=== PATIENT | female | born 2000 | race Caucasian/White ===

== ENCOUNTER 2021-06-13 10:21 | Inpatient (IN) | payer OTHER ==
[~2021-06-13 10:21] MED LIST: Bupivacaine 0.25% HCL 30 ML VIAL ONE; Oxytocin 10 UNITS/ML VIAL ONE; PROPOFOL 200 MG/20 ML VIAL ONE; Succinylcholine 200 MG/10 ml SYRINGE FS ONE; ePHEDrine Sulfate 50 MG/10 ML VIAL ONE
[2021-06-13 10:53] VITALS: BMI 30.9
[2021-06-13] MEDS: Lactated Ringer's 1,000 ML IV SCH ×3 (11:10→16:54)
[2021-06-13] MEDS ORDERED: hydrALAZINE 20 MG/ML VIAL SLOW IVP PRN ×2 (11:33→23:01)
[2021-06-13] MEDS ORDERED: Betamet Acet/Betamet Na Ph 30 MG/5 ML VIAL ONE (11:34)
[2021-06-13] MEDS ORDERED: Penicillin G Potassium 5 MILL.UNITS VIAL ONE (11:35)
[2021-06-13] MEDS ORDERED: NIFEdipine 10 MG CAP PO SCH ×2 (11:50→18:00)
[2021-06-13] MEDS: NIFEdipine 10 MG CAP ONE ×2 (11:53→12:29)
[2021-06-13] MEDS ORDERED: Promethazine HCl 25 MG/ML VIAL IM PRN ×6 (11:57→23:01)
[2021-06-13] MEDS ORDERED: Penicillin G Potassium 5 MILL.UNITS in Sodium Chloride 0.9% 100 ML IVPB SCH (12:00)
[2021-06-13] MEDS ORDERED: Betamet Acet/Betamet Na Ph 30 MG/5 ML VIAL IM SCH (12:00)
[2021-06-13] MEDS ORDERED: Morphine 10 MG/ML VIAL ONE (12:01)
[2021-06-13] MEDS ORDERED: Morphine 4 MG/ML VIAL SLOW IVP SCH (12:15)
[2021-06-13] MEDS ORDERED: Ibuprofen 800 MG TAB PO PRN (15:47)
[2021-06-13] MEDS ORDERED: Carboprost 250 MCG/ML AMP IM PRN (15:47)
[2021-06-13] MEDS ORDERED: Misoprostol 200 MCG TAB PR PRN ×2 (15:47→23:01)
[2021-06-13] MEDS ORDERED: Methylergonovine 0.2 MG/ML VIAL IM PRN (15:47)
[2021-06-13] MEDS ORDERED: Acetaminophen 500 MG TAB PO PRN (15:47)
[2021-06-13] MEDS ORDERED: Lidocaine 1% (PF) 30 ML VIAL SC PRN (15:47)
[2021-06-13] MEDS: Penicillin G 2.5 MILL.units 2.5 MILL.UNITS in Premix Bag 1 BAG IVPB SCH (15:56)
[2021-06-13] MEDS ORDERED: NS w/ Oxytocin 30 units 500 ML IV SCH ×2 (16:00→23:01)
[2021-06-13] MEDS ORDERED: Lactated Ringer's 1,000 ML IV SCH (16:00)
[2021-06-13] MEDS ORDERED: Fentanyl 2 mcg/Bup 0.1% Cadd 100 ML ONE (16:30)
[2021-06-13 16:31] LABS: SARS-CoV-2 NAA Rapid Test Not Detected (NotDetected)
[2021-06-13 16:32] LABS: Hemoglobin 10.1 g/dL (12.0-15.5); Mean Corpuscular HGB CONC 31.9 g/dL (32.0-36.0); Mean Corpuscular Hemoglobin 24.9 pg (27.0-33.0); Mean Corpuscular Volume 78.3 fl (81.6-98.3); Platelet Count 274 10x3/uL (150-450); RBC Distribution Width 12.4 % (11.5-14.5); Red Blood Cell (RBC) Count 4.05 10x6/uL (3.90-5.03); White Blood Cell (WBC) Count 16.5 10x3/uL (3.5-10.5)
[2021-06-13 16:49] LABS: Hep B Surf Ag Non-Reactive S/CO (NonReactive); Syphilis Antibody Nonreactive (Nonreactive); Syphilis Antibody Index 0.03 S/CO (<1.00 Non-Reactive)
[2021-06-13 16:55] LABS: HBSAg Index 0.18 S/CO (0-0.99)
[2021-06-13] MEDS ORDERED: Azithromycin 500 MG VIAL ONE (19:17)
[2021-06-13] MEDS ORDERED: Oxytocin 10 UNITS/ML VIAL ONE (19:33)
[2021-06-13] MEDS ORDERED: Lidocaine 2% PF 100 mg/5 ml Syringe ONE (19:33)
[2021-06-13] MEDS ORDERED: Morphine 4 MG/ML VIAL ONE (19:45)
[2021-06-13] MEDS ORDERED: Ondansetron PF 4 MG/2 ML Vial ONE (19:48)
[2021-06-13 19:57] LABS: pH (Cord, venous) 7.254 (7.250-7.350)
[2021-06-13] MEDS ORDERED: ePHEDrine Sulfate 50 MG/10 ML VIAL SLOW IVP PRN (20:10)
[2021-06-13] MEDS ORDERED: diphenhydrAMINE 50 MG/ML VIAL IVP PRN ×3 (20:10→20:42)
[2021-06-13] MEDS ORDERED: Acetaminophen 325 MG TAB PO PRN (20:10)
[2021-06-13] MEDS ORDERED: Lactated Ringer's 500 ML IV PRN (20:10)
[2021-06-13] MEDS ORDERED: Hydrocerin (Eucerin) Cream 120 gm Jar TOP PRN ×2 (20:10→20:42)
[2021-06-13] MEDS ORDERED: Naloxone HCl 0.4 mg/ml Vial IVP PRN ×4 (20:10→20:42)
[2021-06-13] MEDS ORDERED: Ondansetron PF 4 MG/2 ML Vial IVP PRN ×4 (20:10→23:01)
[2021-06-13] MEDS ORDERED: Fentanyl 2 mcg/Bupivacaine 0.1% Cassette 100 ML EPIDURAL SCH (20:15)
[2021-06-13] MEDS ORDERED: Communication Order-Pharmacy FS SCH ×3 (20:15→20:45)
[2021-06-13] MEDS ORDERED: Ondansetron HCl/PF 4 MG/2 ML Vial IVP PRN (20:42)
[2021-06-13] MEDS ORDERED: Morphine CADD 1 MG/ML CADD IVPB PRN (20:42)
[2021-06-13] MEDS ORDERED: Fentanyl 100 MCG/2 ML VIAL SLOW IVP PRN (20:42)
[2021-06-13] MEDS ORDERED: Promethazine HCl 25 MG SUPP PR PRN (20:42)
[2021-06-13] MEDS ORDERED: Zolpidem Tartrate 5 MG TAB PO PRN (20:42)
[2021-06-13] MEDS ORDERED: diphenhydrAMINE 50 MG/ML VIAL IM PRN (20:42)
[2021-06-13] MEDS ORDERED: diphenhydrAMINE 25 MG CAP PO PRN (20:42)
[2021-06-13] MEDS ORDERED: Naloxone HCl 0.4 mg/ml Vial IV PRN ×2 (20:42)
[2021-06-13] MEDS ORDERED: Ketorolac Tromethamine 30 MG/ML VIAL IVP SCH (20:45)
[2021-06-13] MEDS ORDERED: Morphine 50 MG in Sodium Chloride 0.9% 45 ML IVPB PRN (21:12)
[2021-06-13] MEDS ORDERED: Boostrix 0.5 ML (Tdap) VIAL IM ONE (23:01)
[2021-06-13] MEDS ORDERED: HYDROcodone/Acetaminophen 5/325 mg Tablet PO PRN (23:01)
[2021-06-13] MEDS ORDERED: Lanolin Ointment 7 GM TUBE TOP PRN (23:01)
[2021-06-13] MEDS ORDERED: Bisacodyl 10 MG SUPP PR PRN (23:01)
[2021-06-14] MEDS: CEFAZOLIN 2 GM in Premix Bag 1 BAG IVPB SCH ×2 (04:03→11:44)
[2021-06-14 07:34] LABS: Hemoglobin 7.6 g/dL (12.0-15.5); Mean Corpuscular HGB CONC 31.5 g/dL (32.0-36.0); Mean Corpuscular Hemoglobin 24.8 pg (27.0-33.0); Mean Corpuscular Volume 78.5 fl (81.6-98.3); Mean Platelet Volume 9.9 fl (7.4-10.4); Platelet Count 251 10x3/uL (150-450); RBC Distribution Width 12.5 % (11.5-14.5); Red Blood Cell (RBC) Count 3.07 10x6/uL (3.90-5.03); White Blood Cell (WBC) Count 16.8 10x3/uL (3.5-10.5)
[2021-06-14] MEDS: Penicillin G 2.5 MILL.units 2.5 MILL.UNITS in Premix Bag 1 BAG IVPB SCH (08:24)
[2021-06-14] MEDS: Ketorolac Tromethamine 30 MG/ML VIAL IVP PRN ×2 (10:26→16:46)
[2021-06-14] MEDS: Prenatal Vitamin 1 TAB PO SCH (10:28)
[2021-06-14] MEDS: HYDROcodone/Acetaminophen 5/325 mg Tablet PO PRN ×2 (12:04→16:47)
[2021-06-14] MEDS: Ferrous Sulfate 325 MG TAB PO SCH (16:46)
[2021-06-14] MEDS: Docusate Calcium (SURFAK) 240 MG CAP PO SCH (22:20)
[2021-06-14] MEDS: Ibuprofen 800 MG TAB PO SCH (22:21)
[2021-06-15] MEDS: Ibuprofen 800 MG TAB PO SCH ×3 (05:47→21:16)
[2021-06-15 06:48] LABS: Hemoglobin 7.3 g/dL (12.0-15.5)
[2021-06-15] MEDS: Prenatal Vitamin 1 TAB PO SCH (08:28)
[2021-06-15] MEDS: Docusate Calcium (SURFAK) 240 MG CAP PO SCH ×2 (08:28→21:17)
[2021-06-15] MEDS: Ferrous Sulfate 325 MG TAB PO SCH ×2 (08:28→18:17)
[2021-06-15] MEDS: HYDROcodone/Acetaminophen 5/325 mg Tablet PO PRN (13:41)
[2021-06-16] MEDS: Ibuprofen 800 MG TAB PO SCH ×3 (05:51→21:36)
[2021-06-16] MEDS: Ferrous Sulfate 325 MG TAB PO SCH ×2 (09:28→21:37)
[2021-06-16] MEDS: Docusate Calcium (SURFAK) 240 MG CAP PO SCH ×2 (09:28→21:37)
[2021-06-16] MEDS: Prenatal Vitamin 1 TAB PO SCH (09:28)
[2021-06-16 19:28] VITALS: TEMP 98.2
[2021-06-17] MEDS: Ibuprofen 800 MG TAB PO SCH (06:50)
[2021-06-17 07:43] VITALS: BP 120/77
[2021-06-17] MEDS: Ferrous Sulfate 325 MG TAB PO SCH (08:08)
[2021-06-17] MEDS: Prenatal Vitamin 1 TAB PO SCH (08:08)
[2021-06-17] MEDS: Docusate Calcium (SURFAK) 240 MG CAP PO SCH (08:08)
== END 2021-06-17 13:10 | disposition home or self-care (01) | DRG 786 ==
LOC: CSHLD/OP 10:21 → CSHLD 17:13 → CSHPED 06-14 00:26
PROVIDERS: ADMIT Obstetrics & Gynecology; ATTEND Obstetrics & Gynecology
PROC: 10D00Z1 Extraction of Products of Conception, Low, Open Approach (ICD-10-PCS; principal; 2021-06-13)
DX: O60.14X0 Preterm labor third trimester with preterm delivery third trimester, not applicable or unspecified (principal); O45.93 Premature separation of placenta, unspecified, third trimester; D62 Acute posthemorrhagic anemia; O99.344 Other mental disorders complicating childbirth; Z20.822 Contact with and (suspected) exposure to COVID-19; Z37.0 Single live birth; Z3A.37 37 weeks gestation of pregnancy; O76 Abnormality in fetal heart rate and rhythm complicating labor and delivery; O90.81 Anemia of the puerperium
CPT/HCPCS: 36415; 51702; 76805; 82805; 85014; 85018; 85027; 86780; 86850; 86900; 86901; 87340; 88307; 99285; J0456; J0690; J0702; J1885; J2001; J2270; J2405; J2540; J2550; J2590; J2704; J7120; S0020; U0002